=== PATIENT | female | born 1990 | race Caucasian/White ===

== ENCOUNTER 2017-03-08 15:28 | Emergency (ER) | payer MEDICAID ==
[~2017-03-08] VITALS: Ht 170.2 cm; Wt 55.0 kg
[~2017-03-08 15:28] MED LIST: HYDR1CAP30 PO; LACT20SO4 PO; LITH300 PO
[2017-03-08 15:31] VITALS: BP 139/82; PULSE 99; RESP 18; TEMP 98.1; O2SAT 99
--- NOTE | 2017-03-08 15:33 | PD ---
Physical Exam Time Seen by Provider: 15:33 Narrative 26 y/o female with R wrist/forearm pain, she reports that she has a fx to the right wrist but reinjured it today. Vital signs reviewed. Seen at triage desk. Awaiting bed placement. Data Data Last Documented VS Vital Signs Date Time Temp Pulse Resp B/P Pulse Ox O2 Delivery O2 Flow Rate FiO2 03/08/17 15:31 98.1 99 18 139/82 99 MDM Medical Record Reviewed: Yes Supervised Visit with JUAN: Kirill Adam Mar 08, 2017 15:33
--- NOTE | 2017-03-08 16:34 | PD ---
HPI Chief Complaint: Injury Time Seen by Provider: 16:34 Travel History International Travel<30 days: No Contact w/Intl Traveler<30days: No Traveled to known affect area: No History of Present Illness HPI 26 YO F presents to the ED for evaluation of right forearm injury. She states that she attempted to catch her ~35 lb son from jumping off a stool today, caught him with her right arm and is experiencing pain in the wrist. The right arm is in a splint and sling. The patient states that she has a fractured wrist from an injury early in the month. She was seen at an outside hospital and discharged for outpatient ortho follow up. She states that she has lost her insurance and has been unable to follow up. PFSH Past Medical History Cardiovascular Problems: Yes (MITRAL VALVE PROLAPSE) Diminished Hearing: No Gastrointestinal Disorders: Yes (Hx stomach ulcers as a child per pt.) Hepatitis: Yes (C) Immunizations Current: Yes ?: Not LMP: 03/05/17 : 1 Para: 0 Miscarriage: 1 : 0 Social History Alcohol Use: Yes (Was daily; Recently sober 3 weeks; drank past few days.) Tobacco Use: Yes (1PPD) Substance Use: Yes (States most recently ETOH & Marijuanna.) Allergies-Medications (Allergen,Severity, Reaction): Coded Allergies: No Known Allergies (Verified , 03/08/17) Per pt. Reported Meds & Prescriptions Reported Meds & Active Scripts Active Ibuprofen 800 Mg Tab 800 Mg PO Q8H Review of Systems Except as stated in HPI: all other systems reviewed are Neg Physical Exam Narrative GENERAL: Well-nourished, well-developed tearful white female in no acute distress. SKIN: Focused skin assessment warm/dry. HEAD: Normocephalic. EYES: No scleral icterus. No injection or drainage. NECK: Supple, trachea midline. No JVD or lymphadenopathy. CARDIOVASCULAR: Regular rate and rhythm without murmurs, gallops, or rubs. RESPIRATORY: Breath sounds equal bilaterally. No accessory muscle use. GASTROINTESTINAL: Abdomen soft, non-tender, nondistended. MUSCULOSKELETAL: No cyanosis, or edema. FOCUSED RIGHT UPPER EXTREMITY EXAM: Right forearm is in a splint. The fingers have good capillary refill and sensation. Patient is able to flex and extend the fingers without pain. BACK: Nontender without obvious deformity. No CVA tenderness. Data Data Last Documented VS Vital Signs Date Time Temp Pulse Resp B/P Pulse Ox O2 Delivery O2 Flow Rate FiO2 03/08/17 16:46 Room Air 03/08/17 15:31 98.1 99 18 139/82 99 Orders Forearm (2vws) (03/08/17 16:42) Wrist, Complete ([id number]) (03/08/17 16:42) Mandatory Outpatient Referral (03/08/17 17:23) Acetamin-Hydrocod 325-5 Mg ([place] 5-325 (03/08/17 17:30) MDM Medical Decision Making Medical Screen Exam Complete: Yes Emergency Medical Condition: Yes Differential Diagnosis fracture versus nonunion versus musculoskeletal pain versus noncompliance versus other Narrative Course 26 YO F presents to the ED for evaluation of right forearm injury. She states that she attempted to catch her ~35 lb son from jumping off a stool today, caught him with her right arm and is experiencing pain in the wrist. The right arm is in a splint and sling. The patient states that she has a fractured wrist from an injury early in the month seen at [facility], unable to follow up 2/2 insurance issues. Vitals reviewed. Physical exam reveals a tearful white female, right forearm in a sugar tong splint. There is good capillary refill, sensation and range of motion of the fingers of the right hand. X-rays reveal a distal radius and ulnar fracture, reasonably aligned. Mandatory outpatient orthopedic consult was placed. Patient was instructed to await call for follow- up, prescribed a short course of anti-inflammatories, instructed not to remove the splint. Return to the ED. She indicated understanding of the instructions and is agreeable to the care plan. She is stable and discharged home. Diagnosis Primary Impression: Right wrist fracture Qualified Code: S62.101D - Right wrist fracture, with routine healing, subsequent encounter Referrals: Orthopedist Patient Instructions: General Instructions, Wrist Fracture in Adults (ED) Additional Instructions: Rest, hydrate. Avoid use of the right arm. Ice, elevation, ibuprofen to manage pain. A mandatory consult has been placed on your behalf. The hospital or the orthopedic office will call you to set an appointment. Do not remove the splint for any reason. Return to the ED for any urgent or emergent medical condition. Med/Other Pt SpecificInfo: Prescription(s) given Scripts Ibuprofen 800 Mg [id number] Mg PO Q8H #20 TAB Ref 0 Prov:Doe Young MD 03/08/17 Disposition: 01 DISCHARGE HOME Condition: Stable Yamilet Mendoza Mar 08, 2017 16:34
[2017-03-08] MEDS ORDERED: ACETAMINOPHEN/HYDROcodone 325 MG/5 MG TAB PO ONE (17:30)
--- NOTE | 2017-03-08 17:36 | RADRPT ---
EXAM DATE/TIME: 03/08/2017 16:56 [facility] COMPARISON: No previous studies available for comparison. INDICATIONS : Right wrist fracture on February 11, reinjury today trying to catch kid. MEDICAL HISTORY : Previous wrist fracture February 11. SURGICAL HISTORY : None. ENCOUNTER: Initial ACUITY: 2 months PAIN SCORE: 10/10 LOCATION: Right distal wrist.. FINDINGS: There is a distal radial fracture with slight displacement dorsally. This ulnar fracture is seen with fracture of the ulnar styloid as well grossly aligned. CONCLUSION: Distal radial and ulnar fractures. Katheryn Olmedo MD on March 08, 2017 at 17:34 Board Certified Radiologist. This report was verified electronically.
--- NOTE | 2017-03-08 17:37 | RADRPT ---
EXAM DATE/TIME: 03/08/2017 17:00 [facility] COMPARISON: No previous studies available for comparison. INDICATIONS : Right wrist fracture on February 11, reinjury today trying to catch kid. MEDICAL HISTORY : Previous right wrist fracture February 11. SURGICAL HISTORY : None. ENCOUNTER: Initial ACUITY: 2 months PAIN SCORE: 10/10 LOCATION: Right distal forearm. FINDINGS: Distal radial and ulnar fractures are seen discussed on the patient's wrist radiographs. CONCLUSION: Distal radial and ulnar fractures. Katheryn Olmedo MD on March 08, 2017 at 17:35 Board Certified Radiologist. This report was verified electronically.
[2017-03-08] MEDS ORDERED: IBUP800T23 PO (17:46)
== END 2017-03-08 18:12 | disposition home or self-care (01) ==
LOC: NEPK 15:28
DX: S62.101D Fracture of unspecified carpal bone, right wrist, subsequent encounter for fracture with routine healing (principal); X58.XXXD Exposure to other specified factors, subsequent encounter
CPT/HCPCS: 73090; 73110; 99283

== ENCOUNTER 2017-04-06 15:44 | Emergency (ER) | payer SELFPAY ==
[~2017-04-06 15:44] MED LIST changes: -HYDR1CAP30 PO; +IBUP800T23 PO; -LACT20SO4 PO; -LITH300 PO
[2017-04-06 15:45] VITALS: BP 128/77; PULSE 113; RESP 16; TEMP 98.2; O2SAT 99
--- NOTE | 2017-04-06 16:02 | PD ---
Physical Exam Time Seen by Provider: 16:00 Narrative 26yo F requesting F/u for R wrist fx. Says she was never contacted by Case management for f/u. Is also requesting re-splinting. Patient seen in triage. VS reviewed. Patient awaiting bed placement. Data Data Last Documented VS Vital Signs Date Time Temp Pulse Resp B/P (MAP) Pulse Ox O2 Delivery O2 Flow Rate FiO2 04/06/17 15:45 98.2 113 16 128/77 (94) 99 MDM Supervised Visit with JUAN: Maranda Caro Apr 06, 2017 16:02
--- NOTE | 2017-04-06 16:33 | PD ---
HPI . here requesting mandatory ortho referral Chief Complaint: Medical Clearance Time Seen by Provider: 16:17 Travel History International Travel<30 days: No Contact w/Intl Traveler<30days: No Traveled to known affect area: No History of Present Illness HPI 26-year-old female here requesting outpatient mandatory referral. Apparently patient had a fracture she sustained over 2 months ago. She was initially diagnosed at another hospital and came into [facility] on March 08 with a splint and sling. She was seen then and due to some financial constraints and was given an outpatient mandatory referral. She tells me she has not heard anything back. She is also requesting a new splint. History Past Medical Histgory LMP: 03/04/17 Past Surgical History Surgical History: No Previous Surgery Social History Alcohol Use: Yes (daily, pt denies 03/2017) Tobacco Use: Yes (1PPD) Allergies-Medications (Allergen,Severity, Reaction): Coded Allergies: No Known Allergies (Verified , 04/06/17) Per pt. Reported Meds & Prescriptions Reported Meds & Active Scripts Active No Active Prescriptions or Reported Medications Review of Systems General / Constitutional: No: Fever Eyes: No: Visual changes HENT: No: Headaches Cardiovascular: No: Chest Pain or Discomfort Respiratory: No: Shortness of Breath Gastrointestinal: No: Abdominal Pain Genitourinary: No: Dysuria Musculoskeletal: No: Pain Skin: No Rash Neurologic: No: Weakness Psychiatric: No: Depression Endocrine: No: Polydipsia Hematologic/Lymphatic: No: Easy Bruising Physical Exam Narrative GENERAL: AAO x 3, no acute distress, Well-nourished, well-developed patient. SKIN: Warm and dry. No visible rashes or bruising. HEAD: Normocephalic and atraumatic. EYES: No scleral icterus. No injection or drainage. ENT: No nasal drainage noted. Mucous membranes pink. Airway patent. NECK: Supple, trachea midline. No JVD. CARDIOVASCULAR: Regular rate and rhythm without murmurs, gallops, or rubs. RESPIRATORY: Breath sounds equal bilaterally. No accessory muscle use. No rhonchi or rales. GASTROINTESTINAL: visual inspection normal EXTREMITIES: No cyanosis or edema. splint intact on right arm, no color abnormality, no edema. all digits move normally. no odor BACK: Nontender without obvious deformity. No CVA tenderness. NEURO: CN II-12 intact, PSYCH: AAO x 3, normal affect. Data Data Last Documented VS Vital Signs Date Time Temp Pulse Resp B/P (MAP) Pulse Ox O2 Delivery O2 Flow Rate FiO2 04/06/17 15:45 98.2 113 16 128/77 (94) 99 MDM Medical Screen Exam Complete: Yes Emergency Medical Condition: No Differential Diagnosis wrist fracture, medical clearance Narrative Course A medical screening exam was performed: At the time of evaluation the presenting medical condition was determined not to be of an emergent nature. The patient was given the option of receiving additional care, but declined. Patient was given options for additional community resources from which to obtain care. The Patient Has Been advised to seek medical attention for their presenting complaint. The patient has been advised to return to the ER at any time if an emergent condition develops. I've actually reached out to the case coordinator Berry. We have done some research and patient has [employer]. She does not want to pay her SOC, and according to Berry mandatory referral cannot be placed for [employer]. I explained to the patient. She will try to f/u with ortho. Primary Impression: Encounter for medical screening examination Scripts No Active Prescriptions or Reported Meds Condition: Stable Bonita Bond Apr 06, 2017 16:33
== END 2017-04-06 16:49 | disposition left against medical advice (07) ==
LOC: NEPK 15:44
DX: Z51.89 Encounter for other specified aftercare (principal); F17.200 Nicotine dependence, unspecified, uncomplicated
CPT/HCPCS: 99281

== ENCOUNTER 2017-09-27 16:15 | Emergency (ER) | payer OTHER ==
[2017-09-27 16:17] VITALS: BP 134/73; PULSE 80; RESP 16; TEMP 98.3; O2SAT 99
[2017-09-27] MEDS ORDERED: MAGICADU2 SWISH-SPIT (16:34)
[2017-09-27] MEDS ORDERED: CLIN300C5 PO (16:34)
--- NOTE | 2017-09-27 16:36 | PD ---
HPI Chief Complaint: Oral / Dental Pain or Problem Time Seen by Provider: 16:33 Travel History International Travel<30 days: No Contact w/Intl Traveler<30days: No Traveled to known affect area: No History of Present Illness HPI 27-year-old female presents for evaluation of dental pain. Symptoms started yesterday. The pain is a throbbing pain that is constant, localized to the left maxillary second and third molars and the surrounding gumline, worse when chewing. Denies any fevers or chills. She reports that she has had similar dental infections in the past, recently she was on a course of amoxicillin. She reports that she recently obtained new insurance and plans on following up soon with a dentist. She has no other complaints at this time. [facility] Past Medical History Cardiovascular Problems: Yes (MITRAL VALVE PROLAPSE) Diminished Hearing: No Gastrointestinal Disorders: Yes (Hx stomach ulcers as a child per pt.) Hepatitis: Yes (C) Immunizations Current: Yes Ulcer: Yes ?: Not LMP: 09/15/2017 : 1 Para: 0 Miscarriage: 1 : 0 Social History Alcohol Use: Yes (daily, pt denies 03/2017) Tobacco Use: Yes (1PPD) Substance Use: Yes ( Marijuanna.) Allergies-Medications (Allergen,Severity, Reaction): Coded Allergies: No Known Allergies (Verified Adverse Reaction, Unknown, 09/27/17) Per pt. Reported Meds & Prescriptions Reported Meds & Active Scripts Active No Active Prescriptions or Reported Medications Review of Systems General / Constitutional: No: Fever, Chills HENT: Positive: Dental Difficulties Physical Exam Narrative GENERAL: Well-developed well-nourished female in no acute distress SKIN: Warm and dry. HEAD: Atraumatic. Normocephalic. EYES: Pupils equal and round. No scleral icterus. No injection or drainage. ENT: No nasal bleeding or discharge. Mucous membranes pink and moist. Significant dental decay noted to the left maxillary second and third molars which are tender to palpation. The surrounding gumline is edematous. There is no trismus. There is no sublingual edema. NECK: Trachea midline. No JVD. There is no lymphadenopathy or submandibular edema. CARDIOVASCULAR: Regular rate and rhythm. No murmur appreciated. RESPIRATORY: No accessory muscle use. Clear to auscultation. Breath sounds equal bilaterally. Data Data Last Documented VS Vital Signs Date Time Temp Pulse Resp B/P (MAP) Pulse Ox O2 Delivery O2 Flow Rate FiO2 09/27/17 16:17 98.3 80 16 134/73 (93) 99 Orders Orders Ed Discharge Order (09/27/17 16:33) MDM Medical Decision Making Medical Screen Exam Complete: Yes Emergency Medical Condition: Yes Medical Record Reviewed: Yes Differential Diagnosis Dental caries, pulpitis, pericoronitis, periodontal abscess Narrative Course The patient has dental caries and likely periodontal abscess formation. She will be discharged with clindamycin, Magic mouthwash. Diagnosis Primary Impression: Dental caries Additional Impression: Periodontal abscess Additional Instructions: Medication as prescribed. Warm salt water gargle several times a day. Follow- up with a dentist for definitive therapy. Avoid tobacco products. Return for any emergent medical conditions. Med/Other Pt SpecificInfo: Prescription(s) given Scripts Jdokthhi-Boiwnsdbbogncbm-Iilitdqpr Liq (Magic Mouthwash Adult Liq) 120 Ml Susp 10 ML SWISH-SPIT ACHS for Mouth sores, #120 ML 0 Refills Each 5mL contains: Nystatin 200,000units, Diphenhydramine 4.25mg, Viscous Lidocaine 10mg, Donovan syrup 0.8 mL Prov: Thomas Sanchez MD 09/27/17 Clindamycin (Clindamycin) 300 Mg Cap 300 MG PO TID for Infection for 10 Days, CAP 0 Refills Prov: Thomas Sanchez MD 09/27/17 Disposition: 01 DISCHARGE HOME Condition: Stable Kirill Fernandez Sep 27, 2017 16:36
== END 2017-09-27 16:48 | disposition home or self-care (01) ==
LOC: NEPK 16:15
DX: K02.9 Dental caries, unspecified (principal); K05.219 Aggressive periodontitis, localized, unspecified severity; B19.20 Unspecified viral hepatitis C without hepatic coma; Z72.0 Tobacco use
CPT/HCPCS: 99283